=== PATIENT | female | born 1935 | race Caucasian/White ===

== ENCOUNTER 2022-11-01 22:26 | Inpatient (IN) ==
[2022-11-01] MEDS ORDERED: SODIUM CHLORIDE 0.9% 1000ML 1,000 ML IV SCH (22:45)
[2022-11-01 23:14] LABS: Basophils # (auto) 0.06 K/uL (0-0.2); Basophils % (auto) 0.8 %; Eosinophils # (auto) 0.28 K/uL (0-0.50); Eosinophils % (auto) 3.9 %; Hematocrit (blood only) 38.2 % (37.0-47.0); Hemoglobin 13.3 g/dl (12.0-16.0); Immature Granulocytes # (auto) 0.02 K/uL (0.01-0.20); Immature Granulocytes % (auto) 0.3 %; Lymphocytes # (auto) 1.66 K/uL (1.2-3.4); Lymphocytes % (auto) 22.9 %; Mean Corpuscular Hemoglobin 33.3 pg (25.0-34.0); Mean Corpuscular Hgb Conc 34.8 g/dL (32.0-36.0); Mean Corpuscular Volume 95.5 fL (80.0-100.0); Mean Platelet Volume 10.3 fL (9.4-12.4); Monocytes # (auto) 0.68 K/uL (0.11-0.59); Monocytes % (auto) 9.4 %; Neutrophils # (auto) 4.55 K/uL (1.40-6.50); Neutrophils % (auto) 62.7 %; Platelet Count 209 K/uL (130-400); RDW Coefficient of Variation 12.6 % (11.5-14.5); RDW Standard Deviation 43.9 fL (36.4-46.3); White Blood Count 7.25 K/ul (4.8-10.8)
[2022-11-01 23:27] LABS: Albumin Globulin Ratio 1.5 (0.9-2); Albumin Level 4.6 gm/dl (3.4-5.0); BUN Creatinine Ratio 16.5 (10-20); Bilirubin,Total 0.4 mg/dl (0.2-1.0); Calcium 10.3 mg/dl (8.5-10.1); Creatinine Clr Calc Pharmacy 43.5 ml/min; Est GFR (African American) 70.9 ml/min; Est GFR (Non-African American) 61.2 ml/min; Globulin 3.1 gm/dl (2.5-4.0); Magnesium 1.7 mg/dl (1.7-2.4); Potassium 3.8 mmol/L (3.5-5.1); Total Protein 7.7 gm/dl (6.0-8.3)
[2022-11-01 23:41] LABS: Thyroid Stimulating Hormone 15.554 uIu/ml (0.300-4.500)
[2022-11-01 23:58] LABS: INR 0.9 (0.9-1.1); Prothrombin Time 10.1 Seconds (9.0-12.0)
[2022-11-02 00:18] LABS: T4 Free Thyroxine 0.66 ng/dl (0.61-1.60)
[2022-11-02] MEDS ORDERED: OPTIRAY 350 100ml IV ONE (00:24)
--- NOTE | 2022-11-02 00:52 | Emergency Department Note ---
Impression & Plan Abdominal pain, acute, right lower quadrant, Small bowel obstruction, Abdominal wall hernia ED Provider Note ED Provider Note NAME: HERNAN FLORES AGE:87 SEX: Female : 1935 ARRIVES VIA: Private vehicle INFORMANT: Patient ED PROVIDER(s): Micaela Hernández DO CHIEF COMPLAINT: Abdominal pain HPI: This is an 87-year-old female presents emergency room due to concern for right lower quadrant abdominal pain which began this evening after dinner. Patient states she had some mild discomfort earlier in the day and mild bloating, although no overt pain to after eating dinner. She denies any change in her diet or eating something new. Denies any recent change in medications, denies trauma or injury. Patient states pain is similar to an episode 5 years ago where she had diverticulitis. Patient denies any recent change in her urine or stools. She denies any coming fevers but admits to chills. She denies n ausea or vomiting. No prior abdominal surgeries. No history of IBS or IBD. Patient states after developing pain she did check her blood pressure and noted it was elevated which also contributed to coming to the emergency room for evaluation. PAST MEDICAL HISTORY:See Below PAST SURGICAL HISTORY:See Below FAMILY HISTORY:See Below SOCIAL HISTORY:See Below HOME MEDICATIONS:See Below ALLERGIES:See Below VITALS:See Below PHYSICAL EXAMINATION: GENERAL: alert, well appearing, well nourished, no distress, non-toxic EYE EXAM: normal conjunctiva, PERRL and EOM's grossly intact OROPHARYNX: no exudate, no erythema, lips, buccal mucosa, and tongue normal and mucous membranes are moist NECK: supple, no nuchal rigidity, no adenopathy, non-tender LUNGS: Clear to auscultation. Normal chest wall mechanics, no w/r/r HEART: no murmurs, S1 normal and S2 normal ABDOMEN: abdomen soft, mild tenderness with palpation of the right lower quadrant, normo-active bowel sounds, no masses, no rebound or guarding. BACK: Back is symmetrical on inspection and there is no deformity, no midline tenderness, no CVA tenderness. SKIN: no rashes, petechiae, orbruising UPPER EXTREMITIES: upper extremities are grossly normal. FROM, nml pulses b/l. LOWER EXTREMITIES: No pitting edema. FROM, nml pulses b/l. NEURO EXAM: Normal sensorium, cranial nerves II-XII grossly intact, normal speech, no facial droop,nogross weakness of arms, no gross weakness of legs. Gross sensation intact. No ataxia. Vital Signs: reviewed and remarkable Differential Diagnosis: Differential diagnoses includes but is not limited to small bowel obstruction, ischemic bowel, irritable bowel disease, irritable bowel syndrome, appendicitis, diverticulitis, malignancy, hernia, urinary tract infection, torsion, perforation, trauma, infectious. MEDICAL DECISION MAKING: THis is an 87 yo female who presents with rlq abdominal pain. Patient with htn also although I suspect that is secondary to the pain and concern for etiology leading to presentation in the ER. Patient afebrile and VS stable. Labs drawn and sent, IV established, patient monitored on telemetry. Patient sent for CT imaging after discussion at bedside. Patient most concerned for diverticulitis. Pain localized to RLQ and rest of abd exam otherwise unremarkable. No palpable mass. CT revealed abd wall hernia extending into inguinal region containing loop of bowel and secondary SBO from this. Patient updated on results. Case discussed with gen surg and with hospitalist for additional inpatient evaluation. No n/v in the ER. No change in BMs and pt still passing gas. VS stable throughout. Consultation(s): 0135: Discussed with Phani Gomez PA-C with general surgery 0140: Updated patient and daughter at bedside. 0148: Discussed with Dr. Celaya ER Treatment Provided: See below Diagnostics Interpreted By Me: -ECG: Sinus tachycardia at 104, normal axis, normal QRS and QTc, no acute ST/T wave changes -Cardiac Monitoring: An order was placed for continuous cardiac monitoring. The monitor shows a rate of 90 with normal sinus rhythm. -Laboratory studies: As stated above and show below. -Imaging studies: [] Triage Nursing Note Reviewed Prior/Outside Records Reviewed Procedures: [] Critical Care: [] Past Med/Surg History Medical History (Updated 11/03/22 @ 11:31 by Micaela Hernández DO) Diverticulitis Hypertension Surgical History (Updated 11/03/22 @ 08:25 by Minh Pickard MD, FACS) H/O right inguinal hernia repair (11/02/22) Laparoscopy with open right inguinal hernia repair. Hx of abdominal surgery Family History Other No significant family history Social History Smoking Status: Never smoker Hx Alcohol Use: No Hx Substance Use: No Preferred Language: Romanian Communication Ability: Effective Universal Worker Assisted Living Required: No Beliefs That Will Affect Care: Spiritual Current Living Situation: Alone Feels Safe at Home: Yes Assistive Devices: None Allergies Allergies Allergy/AdvReac Type Severity Reaction Status Date / Time adhesive tape Allergy Rash Verified 11/01/22 23:15 cat dander Allergy Unknown Verified 11/01/22 23:15 colchicine Allergy abdominal Verified 11/01/22 23:15 pain,nausea,vomiting nickel Allergy Redness of Verified 11/01/22 23:15 Skin Home Meds Home Medications Medication Instructions Recorded Confirmed cholecalciferol (vitamin D3) 25 25 mcg PO DAILY 11/01/22 11/01/22 mcg (1,000 unit) tablet (Vitamin D3) lisinopril 2.5 mg tablet 2.5 mg PO DAILY 11/01/22 11/01/22 omeprazole 20 mg capsule,delayed 20 mg PO PRN Acid Reflux 11/01/22 release simvastatin 20 mg tablet 20 mg PO DAILY 11/01/22 11/01/22 Previous Rx's Medication Instructions Recorded cephalexin 500 mg capsule 500 mg PO TID #15 caps 11/03/22 hydrocodone 5 mg-acetaminophen 325 1 tab PO Q4H PRN pain #20 tabs 11/03/22 mg tablet Results & Data (ED) Vital Signs Vital Signs - 24 hr 11/01/22 22:27 11/01/22 22:52 11/01/22 23:19 Temperature 37.7 C H Temperature Source Temporal Artery Scan Pulse Rate 99 H Pulse Rate [Apical] 87 84 Respiratory Rate 16 20 20 Respiratory Effort / Characteristics Non-Labored Spontaneous Non-Labored Respiratory Depth Normal Normal Blood Pressure 191/96 H Blood Pressure [Left Arm] 186/121 H 172/89 H Blood Pressure Mean 127 Blood Pressure Mean [Left Arm] 142 116 Blood Pressure Position Sitting Blood Pressure Position [Left Arm] Sitting Pulse Oximetry 98 96 96 Oxygen Delivery Method Room Air Room Air Room Air Sepsis Recent Fever Within 48 Hours No Sepsis New/Unexplained Change in Mental Status N/A Sepsis Action Taken by Nursing No Action Required 11/01/22 23:15 11/02/22 00:36 11/02/22 01:32 Temperature Temperature Source Pulse Rate 75 Pulse Rate [Apical] 96 H 92 H Respiratory Rate 20 20 Respiratory Effort / Characteristics Non-Labored Non-Labored Respiratory Depth Normal Normal Blood Pressure Blood Pressure [Left Arm] 172/86 H 175/92 H Blood Pressure Mean Blood Pressure Mean [Left Arm] 114 119 Blood Pressure Position Blood Pressure Position [Left Arm] Pulse Oximetry 97 97 Oxygen Delivery Method Room Air Room Air Sepsis Recent Fever Within 48 Hours Sepsis New/Unexplained Change in Mental Status Sepsis Action Taken by Nursing Laboratory Data 11/01/22 22:53 11/01/22 22:53 Lab Results 11/01/22 11/01/22 11/01/22 Range/Units 22:53 22:53 22:53 WBC 7.25 (4.8-10.8) K/ul RBC 4.00 L (4.20-5.40) M/uL Hgb 13.3 (12.0-16.0) g/dl Hct 38.2 (37.0-47.0) % MCV 95.5 (80.0-100.0) fL MCH 33.3 (25.0-34.0) pg MCHC 34.8 (32.0-36.0) g/dL RDW Std Deviation 43.9 (36.4-46.3) fL RDW Coeff of Markell 12.6 (11.5-14.5) % Plt Count 209 (130-400) K/uL MPV 10.3 (9.4-12.4) fL Immature Gran % (Auto) 0.3 % Neut % (Auto) 62.7 % Lymph % (Auto) 22.9 % [place] % (Auto) 9.4 % Eos % (Auto) 3.9 % Baso % (Auto) 0.8 % Neut # (Auto) 4.55 (1.40-6.50) K/uL Lymph # (Auto) 1.66 (1.2-3.4) K/uL [place] # (Auto) 0.68 H (0.11-0.59) K/uL Eos # (Auto) 0.28 (0-0.50) K/uL Baso # (Auto) 0.06 (0-0.2) K/uL Immature Gran # (Auto) 0.02 (0.01-0.20) K/uL PT 10.1 (9.0-12.0) Seconds INR 0.9 (0.9-1.1) Sodium 136 (136-145) mmol/L Potassium 3.8 (3.5-5.1) mmol/L Chloride 101 (98-107) mmol/L Carbon Dioxide 31 (21-32) mmol/L Anion Gap 4 (3-11) BUN 14 (6-23) mg/dl Creatinine 0.85 (0.6-1.2) mg/dl Est Cr Clr Drug Dosing 43.5 ml/min Est GFR ( Amer) 70.9 ml/min Est GFR (Non-Af Amer) 61.2 ml/min BUN/Creatinine Ratio 16.5 (10-20) Glucose 119 H (70-99(Fasting)) mg/dl Lactate (0.4-2.0) mmol/L Calcium 10.3 H (8.5-10.1) mg/dl Magnesium 1.7 (1.7-2.4) mg/dl Total Bilirubin 0.4 (0.2-1.0) mg/dl AST 21 (13-39) U/L ALT 16 (7-52) U/L Alkaline Phosphatase 87 (34-104) U/L Troponin I High Sens 6.0 (0-14) pg/ml Total Protein 7.7 (6.0-8.3) gm/dl Albumin 4.6 (3.4-5.0) gm/dl Globulin 3.1 (2.5-4.0) gm/dl Albumin/Globulin Ratio 1.5 (0.9-2) Lipase 32 (11-82) U/L TSH (0.300-4.500) uIu/ml Free T4 (0.61-1.60) ng/dl Urine Color Urine Appearance (Clear) Urine pH (4.5-7.5) Ur Specific [place] (1.000-1.030) Urine Protein (Negative) Urine Glucose (UA) (Negative) Urine Ketones (Negative) Urine Blood (Negative) Urine Nitrite (Negative) Urine Bilirubin (Negative) Urine Urobilinogen (Negative) Ur Leukocyte Esterase (Negative) Urine WBC (Auto) (0-5) /hpf Urine RBC (Auto) (0-4) /hpf U Hyaline Cast (Auto) (0-5) /lpf U Epithel Cells (Auto) (0-5) /lpf Urine Bacteria (Auto) (Negative) SARS-CoV-2 (PCR) (Negative) Influenza Type A (PCR) (Neg) Influenza Type B (PCR) (Neg) RSV (RT-PCR) (Neg) 11/01/22 11/02/22 11/02/22 Range/Units 22:53 00:15 01:30 WBC (4.8-10.8) K/ul RBC (4.20-5.40) M/uL Hgb (12.0-16.0) g/dl Hct (37.0-47.0) % MCV (80.0-100.0) fL MCH (25.0-34.0) pg MCHC (32.0-36.0) g/dL RDW Std Deviation (36.4-46.3) fL RDW Coeff of Markell (11.5-14.5) % Plt Count (130-400) K/uL MPV (9.4-12.4) fL Immature Gran % (Auto) % Neut % (Auto) % Lymph % (Auto) % [place] % (Auto) % Eos % (Auto) % Baso % (Auto) % Neut # (Auto) (1.40-6.50) K/uL Lymph # (Auto) (1.2-3.4) K/uL [place] # (Auto) (0.11-0.59) K/uL Eos # (Auto) (0-0.50) K/uL Baso # (Auto) (0-0.2) K/uL Immature Gran # (Auto) (0.01-0.20) K/uL PT (9.0-12.0) Seconds INR (0.9-1.1) Sodium (136-145) mmol/L Potassium (3.5-5.1) mmol/L Chloride (98-107) mmol/L Carbon Dioxide (21-32) mmol/L Anion Gap (3-11) BUN (6-23) mg/dl Creatinine (0.6-1.2) mg/dl Est Cr Clr Drug Dosing ml/min Est GFR ( Amer) ml/min Est GFR (Non-Af Amer) ml/min BUN/Creatinine Ratio (10-20) Glucose (70-99(Fasting)) mg/dl Lactate 0.9 (0.4-2.0) mmol/L Calcium (8.5-10.1) mg/dl Magnesium (1.7-2.4) mg/dl Total Bilirubin (0.2-1.0) mg/dl AST (13-39) U/L ALT (7-52) U/L Alkaline Phosphatase (34-104) U/L Troponin I High Sens (0-14) pg/ml Total Protein (6.0-8.3) gm/dl Albumin (3.4-5.0) gm/dl Globulin (2.5-4.0) gm/dl Albumin/Globulin Ratio (0.9-2) Lipase (11-82) U/L TSH 15.554 H (0.300-4.500) uIu/ml Free T4 0.66 (0.61-1.60) ng/dl Urine Color Yellow Urine Appearance Clear (Clear) Urine pH 7.0 (4.5-7.5) Ur Specific [place] 1.021 (1.000-1.030) Urine Protein Negative (Negative) Urine Glucose (UA) Negative (Negative) Urine Ketones Negative (Negative) Urine Blood Negative (Negative) Urine Nitrite Negative (Negative) Urine Bilirubin Negative (Negative) Urine Urobilinogen Negative (Negative) Ur Leukocyte Esterase 1+ H (Negative) Urine WBC (Auto) 1-5 (0-5) /hpf Urine RBC (Auto) 0-4 (0-4) /hpf U Hyaline Cast (Auto) 0 (0-5) /lpf U Epithel Cells (Auto) 0-5 (0-5) /lpf Urine Bacteria (Auto) Negative (Negative) SARS-CoV-2 (PCR) (Negative) Influenza Type A (PCR) (Neg) Influenza Type B (PCR) (Neg) RSV (RT-PCR) (Neg) 11/02/22 Range/Units 01:40 WBC (4.8-10.8) K/ul RBC (4.20-5.40) M/uL Hgb (12.0-16.0) g/dl Hct (37.0-47.0) % MCV (80.0-100.0) fL MCH (25.0-34.0) pg MCHC (32.0-36.0) g/dL RDW Std Deviation (36.4-46.3) fL RDW Coeff of Markell (11.5-14.5) % Plt Count (130-400) K/uL MPV (9.4-12.4) fL Immature Gran % (Auto) % Neut % (Auto) % Lymph % (Auto) % [place] % (Auto) % Eos % (Auto) % Baso % (Auto) % Neut # (Auto) (1.40-6.50) K/uL Lymph # (Auto) (1.2-3.4) K/uL [place] # (Auto) (0.11-0.59) K/uL Eos # (Auto) (0-0.50) K/uL Baso # (Auto) (0-0.2) K/uL Immature Gran # (Auto) (0.01-0.20) K/uL PT (9.0-12.0) Seconds INR (0.9-1.1) Sodium (136-145) mmol/L Potassium (3.5-5.1) mmol/L Chloride (98-107) mmol/L Carbon Dioxide (21-32) mmol/L Anion Gap (3-11) BUN (6-23) mg/dl Creatinine (0.6-1.2) mg/dl Est Cr Clr Drug Dosing ml/min Est GFR ( Amer) ml/min Est GFR (Non-Af Amer) ml/min BUN/Creatinine Ratio (10-20) Glucose (70-99(Fasting)) mg/dl Lactate (0.4-2.0) mmol/L Calcium (8.5-10.1) mg/dl Magnesium (1.7-2.4) mg/dl Total Bilirubin (0.2-1.0) mg/dl AST (13-39) U/L ALT (7-52) U/L Alkaline Phosphatase (34-104) U/L Troponin I High Sens (0-14) pg/ml Total Protein (6.0-8.3) gm/dl Albumin (3.4-5.0) gm/dl Globulin (2.5-4.0) gm/dl Albumin/Globulin Ratio (0.9-2) Lipase (11-82) U/L TSH (0.300-4.500) uIu/ml Free T4 (0.61-1.60) ng/dl Urine Color Urine Appearance (Clear) Urine pH (4.5-7.5) Ur Specific [place] (1.000-1.030) Urine Protein (Negative) Urine Glucose (UA) (Negative) Urine Ketones (Negative) Urine Blood (Negative) Urine Nitrite (Negative) Urine Bilirubin (Negative) Urine Urobilinogen (Negative) Ur Leukocyte Esterase (Negative) Urine WBC (Auto) (0-5) /hpf Urine RBC (Auto) (0-4) /hpf U Hyaline Cast (Auto) (0-5) /lpf U Epithel Cells (Auto) (0-5) /lpf Urine Bacteria (Auto) (Negative) SARS-CoV-2 (PCR) NEGATIVE (Negative) Influenza Type A (PCR) Negative (Neg) Influenza Type B (PCR) Negative (Neg) RSV (RT-PCR) Negative (Neg) Administered Medications Enoxaparin Sodium (Enoxaparin Inj 30 Mg/0.3 Ml Syr) 30 mg SQ QAM [facility] Stop: 12/02/22 08:59 Last Admin: 11/03/22 08:48 Dose: 30 mg Documented By: Admin: 11/02/22 09:11 Dose: Not Given Documented By: ADOLFO Cefazolin Sodium (Ancef 1000mg) 1,000 mg in 7.5 mls @ 2.5 mls/min IV Q8H [facility]; Protocol Stop: 11/09/22 13:59 Last Admin: 11/03/22 05:49 Dose: 2.5 mls/min Documented By: Admin: 11/02/22 20:57 Dose: 2.5 mls/min Documented By: Admin: 11/02/22 14:13 Dose: 2.5 mls/min Documented By: DONNA Lisinopril (Lisinopril 5 Mg Tab) 5 mg PO DAILY [facility] Stop: 12/03/22 08:59 Last Admin: 11/03/22 08:47 Dose: 5 mg Documented By: DIANA Magnesium Hydroxide (Magnesium Hydroxide Susp 30 Ml Udc) 30 ml PO BID [facility] Stop: 12/03/22 08:59 Last Admin: 11/03/22 08:50 Dose: 30 ml Documented By: DIANA Pantoprazole Sodium (Pantoprazole 40 Mg Tab) 40 mg PO AMHS [facility] Stop: 12/02/22 08:59 Last Admin: 11/03/22 08:47 Dose: 40 mg Documented By: Admin: 11/02/22 20:50 Dose: 40 mg Documented By: Admin: 11/02/22 08:35 Dose: 40 mg Documented By: ADOLFO Senna/Docusate Sodium (Docusate Sodium/Senna 50/8.6mg Tab) 1 tab PO BID [facility] Stop: 12/03/22 08:59 Last Admin: 11/03/22 08:50 Dose: 1 tab Documented By: DIANA Simvastatin (Simvastatin 20 Mg Tab) 20 mg PO DAILY [facility] Stop: 12/02/22 08:59 Last Admin: 11/03/22 08:47 Dose: 20 mg Documented By: Admin: 11/02/22 08:36 Dose: 20 mg Documented By: ADOLFO Vitamin D (Cholecalciferol 1,000 Units 25 Mcg Tab) 1,000 units PO DAILY [facility] Stop: 12/03/22 08:59 Last Admin: 11/03/22 08:47 Dose: 1,000 units Documented By: DIANA Discontinued Medications Bupivacaine HCl (Bupivacaine 0.5 % 5 Mg/1 Ml Mpf 30ml Vial) Confirm Administered Dose 30 ml .ROUTE .STK-MED ONE Stop: 11/02/22 09:57 Last Admin: 11/02/22 11:24 Dose: 20 ml Documented By: MOIRA Hydralazine HCl (Hydralazine Hcl 20 Mg/Ml Vial) 5 mg IV NOW ONE Stop: 11/02/22 01:52 Last Increment: 11/02/22 03:15 Dose: 0.25 mg Documented By: ERIKA Sodium Chloride (Nss 1000ml) 1,000 mls @ 125 mls/hr IV .Q8H [facility] Stop: 12/01/22 22:44 Last Infusion: 11/02/22 08:09 Dose: 0 mls/hr Documented By: Admin: 11/01/22 23:19 Dose: 125 mls/hr Documented By: DAPHNIE Acetaminophen (Ofirmev) 1,000 mg in 100 mls @ 400 mls/hr IV NOW STA Stop: 11/02/22 02:00 Last Admin: 11/02/22 04:33 Dose: Not Given Documented By: ERIKA Piperacillin Sod/Tazobactam Sod (Zosyn) 4.5 gm in 120 mls @ 240 mls/hr IV NOW ONE Stop: 11/02/22 02:16 Last Admin: 11/02/22 04:32 Dose: Not Given Documented By: ERIKA Sodium Chloride (Nss 1000ml) 1,000 mls @ 75 mls/hr IV .[id number] ONE Stop: 11/02/22 15:08 Last Infusion: 11/02/22 15:14 Dose: 0 mls/hr Documented By: Admin: 11/02/22 07:01 Dose: 75 mls/hr Documented By: ADOLFO Ceftriaxone Sodium 2,000 mg/ (Dextrose) 70 mls @ 100 mls/hr IV Q24H [facility]; Protocol Stop: 11/12/22 03:59 Last Admin: 11/02/22 06:59 Dose: Not Given Documented By: ADOLFO Piperacillin Sod/Tazobactam (Sod 3.375 gm/ Dextrose) 115 mls @ 230 mls/hr IV NOW ONE; Protocol Stop: 11/02/22 06:34 Last Infusion: 11/02/22 06:44 Dose: 0 mls/hr Documented By: Admin: 11/02/22 06:14 Dose: 230 mls/hr Documented By: ERIKA Piperacillin Sod/Tazobactam (Sod 3.375 gm/ Dextrose) 115 mls @ 28.75 mls/hr IV Q8H [facility]; Protocol Stop: 11/12/22 11:59 Last Admin: 11/02/22 12:45 Dose: Not Given Documented By: DONNA Cefazolin Sodium (Ancef 1000mg) 1,000 mg in 7.5 mls @ 2.5 mls/min IV ONCE ONE Stop: 11/02/22 11:10 Last Admin: 11/02/22 11:09 Dose: 2.5 mls/min Documented By: MOIRA Acetaminophen (Ofirmev) 1,000 mg in 100 mls @ 400 mls/hr IV NOW ONE Stop: 11/02/22 11:48 Last Admin: 11/02/22 12:46 Dose: Not Given Documented By: DONNA Sodium Chloride (Nss 1000ml) 1,000 mls @ 50 mls/hr IV .Q20H [facility] Stop: 11/02/22 16:44 Last Infusion: 11/03/22 05:15 Dose: 0 mls/hr Documented By: Admin: 11/02/22 12:47 Dose: 50 mls/hr Documented By: DONNA Ioversol (Optiray 350 100ml) 100 ml IV ONCE ONE Stop: 11/02/22 00:25 Last Admin: 11/02/22 00:24 Dose: 85 ml Documented By: MIRYAM Lisinopril (Lisinopril 5 Mg Tab) 5 mg PO NOW STA Stop: 11/02/22 06:43 Last Admin: 11/02/22 09:08 Dose: 5 mg Documented By: ADOLFO Lisinopril (Lisinopril 5 Mg Tab) Confirm Administered Dose 5 mg PO .STK-MED ONE Stop: 11/02/22 09:02 Last Admin: 11/02/22 12:46 Dose: Not Given Documented By: DONNA Sennosides (Sennosides 8.8 Mg/5 Ml Udc) 8.8 mg PO BID [facility] Stop: 12/02/22 20:59 Last Admin: 11/02/22 20:50 Dose: 8.8 mg Documented By: WALE Imaging Data Radiologist's Impression: CT abdomen pelvis with contrast: Comparison 10/20/2019. 10 cm right lower quadrant ventral hernia (which extends into inguinal region) is now larger and contains a short loop of obstructed distal/terminal ileum as well as trace free fluid. Minimally dilated small bowel just proximal to this in right upper and right lower quadrants, consistent with SBO. Appendix not seen. Emphysematous changes lung bases. Small hiatal hernia. Left renal cyst. Colonic diverticulosis. Radiologist: Fatimah Fenton MD Discharge Plan Visit Data Chief Complaint: Hypertension Stated Complaint: ADOMINAL PAIN, HBP, ED Provider: Micaela Hernández Discharge Problem: Abdominal pain, acute, right lower quadrant, Small bowel obstruction, Abdominal wall hernia Patient Disposition: Admitted As Inpatient Discharge Instructions Interventions: ED Discharge Assessment Last Done: 11/02/22 04:24
[2022-11-02] MEDS ORDERED: ACETAMINOPHEN 1,000 MG/100 ML VIAL IV STA (01:46)
[2022-11-02] MEDS ORDERED: PIPERACILLIN/TAZOBACTAM 4.5 GM/120 ML BAG IV ONE (01:47)
--- NOTE | 2022-11-02 01:48 | History & Physical Report ---
Date of Service November 02, 2022 Assessment & Plan (1) Abdominal pain, acute, right lower quadrant: Plan: Multifactorial : SBO on initial CT read Complicated UTI, no overt sepsis for now hypertensive urgency secondary to illness hyperlipidemia on statin Rx GERD, stable on regimen Hyperglycemia rule out DM Medical telemetry given elevated BP Hydralazine 1 dose now Bowel rest NGT decompression if with emesis General surgery consult Re: Possible SBO on initial CT read (ER provider already in touch with [facility].) Urine CS, Ceftriaxone Check hemoglobin A1c DVT prophylaxis. Lovenox subcu Full code Patient daughter requesting updates from providers. Nu Lovell, contact #[phone]. Text document was generated using [employer] voice recognition software. It may contain grammatical or spelling errors. Kindly contact undersigned for clarification of any documentation item in question. History of Present Illness Chief Complaint: Abdominal pain Primary Care Provider: Jake Jordan MD History obtained from patient, family, and records. Medical history significant for hypertension, hyperlipidemia, GERD, gout, macular degeneration. Patient noted achy right lower quadrant pain associated with bloating after dinner last night. No fever, no chills, no chest pain, no SOB. Similar to diverticulitis attack from a few years ago as per patient. Patient brought to the ER for evaluation. 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 Allergies Allergy/AdvReac Type Severity Reaction Status Date / Time adhesive tape Allergy Rash Verified 11/01/22 23:15 cat dander Allergy Unknown Verified 11/01/22 23:15 colchicine Allergy abdominal Verified 11/01/22 23:15 pain,nausea,vomiting nickel Allergy Redness of Verified 11/01/22 23:15 Skin Home Medications Medication Instructions Recorded Confirmed Type cholecalciferol (vitamin D3) 25 25 mcg PO DAILY 11/01/22 11/01/22 History mcg (1,000 unit) tablet (Vitamin D3) lisinopril 2.5 mg tablet 2.5 mg PO DAILY 11/01/22 11/01/22 History omeprazole 20 mg capsule,delayed 20 mg PO AMHS 11/01/22 11/01/22 History release simvastatin 20 mg tablet 20 mg PO DAILY 11/01/22 11/01/22 History Past Med/Surg History Medical History Diverticulitis Hypertension Surgical History Hx of abdominal surgery Family History Other No significant family history Social History Smoking Status: Never smoker Preferred Language: French Feels Safe at Home: Yes Review of Systems Review of Systems: As per HPI, all other systems reviewed and negative Physical Exam Physical Exam: GENERAL: Comfortable, pleasant, looks younger than stated age, no respiratory distress SKIN: Normal color, warm HEENT: [place] palpebral conjunctivae, no ptosis, moist buccal mucosa NECK : Supple, no tenderness CHEST : CTA, no tenderness HEART : RRR, no obvious murmurs ABDOMEN: Some distention, nontender EXTREMITIES : No LE swelling/tenderness, no other conspicuous deformities noted NEUROLOGIC : Coherent, no facial asymmetry, no other gross focality Results & Data Results & Data ([facility]) Vital Signs (Past 12 Hours) Vital Signs Temp Pulse Pulse Resp BP BP Pulse Ox 11/02/22 01:32 92 H 20 175/92 H 97 11/02/22 00:36 96 H 20 172/86 H 97 11/01/22 23:15 75 11/01/22 23:19 84 20 172/89 H 96 11/01/22 22:52 87 20 186/121 H 96 11/01/22 22:27 37.7 C H 99 H 16 191/96 H 98 O2 Del Method 11/02/22 01:32 Room Air 11/02/22 00:36 Room Air 11/01/22 23:15 11/01/22 23:19 Room Air 11/01/22 22:52 Room Air 11/01/22 22:27 Room Air Laboratory Results Laboratory Results WBC 7.25 K/ul (4.8-10.8) 11/01/22 22:53 RBC 4.00 M/uL (4.20-5.40) L 11/01/22 22:53 Hgb 13.3 g/dl (12.0-16.0) 11/01/22 22:53 Hct 38.2 % (37.0-47.0) 11/01/22:53 MCV 95.5 fL (80.0-100.0) 11/01/22: MCH 33.3 pg (25.0-34.0) 11/01/22: MCHC 34.8 g/dL (32.0-36.0) 11/01/22: RDW Std Deviation 43.9 fL (36.4-46.3) 11/01/22: RDW Coeff of Markell 12.6 % (11.5-14.5) 11/01/22: Plt Count 209 K/uL (130-400) 11/01/22: MPV 10.3 fL (9.4-12.4) 11/01/22: Immature Gran % (Auto) 0.3 % 11/01/22: Neut % (Auto) 62.7 % 11/01/22:53 Lymph % (Auto) 22.9 % 11/01/22 22:53 Rhea % (Auto) 9.4 % 11/01/22 22:53 Eos % (Auto) 3.9 % 11/01/22:53 Baso % (Auto) 0.8 % 11/01/22:53 Neut # (Auto) 4.55 K/uL (1.40-6.50) 11/01/22: Lymph # (Auto) 1.66 K/uL (1.2-3.4) 11/01/22:53 Rhea # (Auto) 0.68 K/uL (0.11-0.59) H 11/01/22:53 Eos # (Auto) 0.28 K/uL (0-0.50) 11/01/22:53 Baso # (Auto) 0.06 K/uL (0-0.2) 11/01/22:53 Immature Gran # (Auto) 0.02 K/uL (0.01-0.20) 11/01/22 22: PT 10.1 Seconds (9.0-12.0) 11/01/22 22:53 INR 0.9 (0.9-1.1) 11/01/22 22:53 Sodium 136 mmol/L (136-145) 11/01/22 22:53 Potassium 3.8 mmol/L (3.5-5.1) 11/01/22 22:53 Chloride 101 mmol/L (98-107) 11/01/22 22:53 Carbon Dioxide 31 mmol/L (21-32) 11/01/22 22:53 Anion Gap 4 (3-11) 11/01/22 22:53 BUN 14 mg/dl (6-23) 11/01/22 22:53 Creatinine 0.85 mg/dl (0.6-1.2) 11/01/22 22:53 Est Cr Clr Drug Dosing 43.5 ml/min 11/01/22 22:53 Est GFR ( Amer) 70.9 ml/min 11/01/22 22:53 Est GFR (Non-Af Amer) 61.2 ml/min 11/01/22 22:53 BUN/Creatinine Ratio 16.5 (10-20) 11/01/22 22:53 Glucose 119 mg/dl (70-99(Fasting)) H 11/01/22 22:53 Lactate 0.9 mmol/L (0.4-2.0) 11/02/22 00:15 Calcium 10.3 mg/dl (8.5-10.1) H 11/01/22 22:53 Magnesium 1.7 mg/dl (1.7-2.4) 11/01/22 22:53 Total Bilirubin 0.4 mg/dl (0.2-1.0) 11/01/22 22:53 AST 21 U/L (13-39) 11/01/22 22:53 ALT 16 U/L (7-52) 11/01/22 22:53 Alkaline Phosphatase 87 U/L (34-104) 11/01/22 22:53 Troponin I High Sens 6.0 pg/ml (0-14) 11/01/22 22:53 Total Protein 7.7 gm/dl (6.0-8.3) 11/01/22 22:53 Albumin 4.6 gm/dl (3.4-5.0) 11/01/22 22:53 Globulin 3.1 gm/dl (2.5-4.0) 11/01/22 22:53 Albumin/Globulin Ratio 1.5 (0.9-2) 11/01/22 22:53 Lipase 32 U/L (11-82) 11/01/22 22:53 TSH 15.554 uIu/ml (0.300-4.500) H 11/01/22 22:53 Free T4 0.66 ng/dl (0.61-1.60) 11/01/22 22:[address] abdomen pelvis initial read: right lower quadrant ventral hernia (which extends to inguinal region) is now larger and contains a short loop of obstructed distal/terminal ileum as well as trace free fluid. Minimally dilated small bowel just proximal to this in right upper and right lower quadrants, consistent with SBO. Appendix not seen. Emphysematous changes lung bases. Small hiatal hernia. Left renal cyst. Colonic diverticulosis. Chest x-ray as per my interpretation atelectasis :
[2022-11-02] MEDS ORDERED: SODIUM CHLORIDE 0.9% 1000ML 1,000 ML IV ONE (01:49)
--- NOTE | 2022-11-02 01:50 | Surgery Consultation ---
Date of Consultation November 02, 2022 Assessment & Plan (1) Small bowel obstruction: I discussed with the treating emergency room physician and she was having the patient admitted to the hospitalist service. We recommend proceeding as follows: Provide analgesicsprovide antiemetics Provide hydration with IV fluids Implement n.p.o. status. At the present time the patient has an entirely benign abdominal exam and has not had any emesis and therefore I do not feel an NG tube is required. I did discuss with the patient that if her clinical exam worsens or she has emesis this may need to be reconsidered Additional recommendations to be forthcoming based on her clinical course as it unfolds Supervising Physician Co-Signing Physician Notes Dr. Rivera was seen in the emergency room and her history and studies have been evaluated I believe she had a loop of bowel incarcerated in a right lower quadrant abdominal wall hernia which was then reduced. There is evidence on her CT scan that it was causing obstructive symptoms and most likely the cause of her pain. I do believe this should be repaired soon as possible and likely today and that it will likely recur and could become strangulated I have discussed this with the patient and her daughter and they do agree to proceed We will proceed with laparoscopic evaluation and repair , possible open repair History of Present Illness Reason for Consultation: Ventral hernia with small bowel obstruction History of Present Illness This is an 87-year-old female who presented to the emergency department secondary to right-sided abdominal pain. Patient says that she has been having somewhat of an ache on the right side of her abdomen for approximately 1 week. She notes that the pain became worse after her evening meal on 11/01/2022. She says the pain is located in the right lower quadrant of her abdomen without radiation. She denies any palliative or provocative factors. She notes the pain got somewhat worse so she came to the emergency department. She denies any nausea or vomiting. She denies any fevers, shakes, or chills. She notes that she had a normal bowel movement earlier today. She has never had any prior abdominal surgeries. Since arrival to the floor the patient has had labs and imaging which I independently reviewed. She did have a CT scan of the abdomen and pelvis which showed that patient had a ventral hernia in the right lower quadrant which extends into the inguinal region. This contains a short loop of obstructed terminal ileum. There is minimally dilated small bowel proximal to this region which was felt to be consistent with a small bowel obstruction. Labs include a CBC her white blood cell count was normal as was her hemoglobin, hematocrit, and platelet count. Coagulation studies were normal. Chemistry profile showed sodium, potassium, BUN, and creatinine were normal. There is no elevation of patient's LFTs. An EKG showed sinus tachycardia without changes indicative of acute ischemia. A chest x-ray showed no evidence of pneumonia. At the time of my interview the patient was resting comfortably in bed without any symptoms or distress. \ Allergies Allergy/AdvReac Type Severity Reaction Status Date / Time adhesive tape Allergy Rash Verified 11/01/22 23:15 cat dander Allergy Unknown Verified 11/01/22 23:15 colchicine Allergy abdominal Verified 11/01/22 23:15 pain,nausea,vomiting nickel Allergy Redness of Verified 11/01/22 23:15 Skin Home Medications Medication Instructions Recorded Confirmed Type cholecalciferol (vitamin D3) 25 25 mcg PO DAILY 11/01/22 11/01/22 History mcg (1,000 unit) tablet (Vitamin D3) lisinopril 2.5 mg tablet 2.5 mg PO DAILY 11/01/22 11/01/22 History omeprazole 20 mg capsule,delayed 20 mg PO AMHS 11/01/22 11/01/22 History release simvastatin 20 mg tablet 20 mg PO DAILY 11/01/22 11/01/22 History Patient History Medical History Diverticulitis Hypertension Surgical History Hx of abdominal surgery Family History Other No significant family history Social History Smoking Status: Never smoker Preferred Language: Kyrgyz Feels Safe at Home: Yes Review of Systems Constitutional: no fever and no chills Eyes: + corrective lenses Ear, Nose, Mouth, Throat: no ear pain Respiratory: no cough and no dyspnea Cardiovascular: no chest pain Gastrointestinal: as per Subjective / HPI Genitourinary: no dysuria Musculoskeletal: no back pain Integumentary: no rash Neurologic: no localized weakness Physical Exam Constitutional: WD/WN, vitals as above Eyes: no conjunctival abnormality ENMT: Ears: no hearing impairment and no external ear abnormality Mouth: no oropharynx abnormality Neck: trachea midline Respiratory: normal respiratory effort; no respiratory distress and no labored breathing Cardiovascular: Rate/Rhythm: regular rate and regular rhythm Gastrointestinal (Abdomen): Abdomen is soft and distended. It is nonrigid and nontender to palpation. Bowel sounds are present. There is no rebound tenderness or guarding. I could not appreciate any hernias at the time of my exam. Musculoskeletal: No calf tenderness Skin: no rashes Neurologic: moves all extremities Psychiatric: A+Ox3, euthymic affect Results & Data ([facility]) Vital Signs (Past 12 Hours) Vital Signs Temp Pulse Pulse Resp BP BP Pulse Ox 11/02/22 01:32 92 H 20 175/92 H 97 11/02/22 00:36 96 H 20 172/86 H 97 11/01/22 23:15 75 11/01/22 23:19 84 20 172/89 H 96 11/01/22 22:52 87 20 186/121 H 96 11/01/22 22:27 37.7 C H 99 H 16 191/96 H 98 O2 Del Method 11/02/22 01:32 Room Air 11/02/22 00:36 Room Air 11/01/22 23:15 11/01/22 23:19 Room Air 11/01/22 22:52 Room Air 11/01/22 22:27 Room Air PG Care Time/CCT Total # of Minutes Spent Total Time Spent with Patient: Total time spent is greater than 50% in coordination of care (as documented) at patient's floor/unit and/or counseling patient: Coding Level of Care Code 12912 INT INP/OBS CARE 3/75MIN Diagnoses Small bowel obstruction K56.609
[2022-11-02] MEDS ORDERED: hydrALAZINE HCL 20 MG/ML VIAL IV ONE (01:51)
[2022-11-02 01:53] LABS: Appearance Urine Clear (Clear); Bacteria Urine Automated Negative (Negative); Bilirubin Urine Negative (Negative); Blood Urine Negative (Negative); Cast Urine Automated 0 /lpf (0-5); Color Urine Yellow; Epithelial Cell Urine Auto 0-5 /lpf (0-5); Glucose Urine UA Negative (Negative); Ketones Urine Negative (Negative); Leukocyte Esterase Urine 1+ (Negative); Nitrite Urine Negative (Negative); Protein Urine Negative (Negative); RBC Urine Automated 0-4 /hpf (0-4); Specific Gravity Urine 1.021 (1.000-1.030); Urobilinogen Urine Negative (Negative)
[2022-11-02] MEDS ORDERED: PROMETHAZINE HCL 6.25 MG in SODIUM CHLORIDE 0.9% 50 ML IV PRN (01:54)
[2022-11-02 02:57] LABS: Influenza A virus by PCR Negative (Neg); Influenza B virus by PCR Negative (Neg); RSV by PCR Negative (Neg); SARS CoV2 RNA(COVID-19) Ceph NEGATIVE (Negative)
[2022-11-02] MEDS ORDERED: cefTRIAXone SODIUM 2,000 MG in DEXTROSE 5% 50 ML IV SCH (04:00)
[2022-11-02] MEDS ORDERED: ACETAMINOPHEN 325 MG TAB PO PRN ×2 (04:23→12:37)
[2022-11-02 04:44] LABS: Basophils # (auto) 0.07 K/uL (0-0.2); Basophils % (auto) 0.7 %; Eosinophils # (auto) 0.25 K/uL (0-0.50); Eosinophils % (auto) 2.5 %; Hemoglobin 12.7 g/dl (12.0-16.0); Immature Granulocytes # (auto) 0.02 K/uL (0.01-0.20); Immature Granulocytes % (auto) 0.2 %; Lymphocytes # (auto) 1.35 K/uL (1.2-3.4); Lymphocytes % (auto) 13.6 %; Mean Corpuscular Hemoglobin 33.2 pg (25.0-34.0); Mean Corpuscular Hgb Conc 35.3 g/dL (32.0-36.0); Mean Corpuscular Volume 94.2 fL (80.0-100.0); Mean Platelet Volume 10.1 fL (9.4-12.4); Monocytes # (auto) 0.79 K/uL (0.11-0.59); Monocytes % (auto) 7.9 %; Neutrophils # (auto) 7.48 K/uL (1.40-6.50); Neutrophils % (auto) 75.1 %; Platelet Count 206 K/uL (130-400); RDW Coefficient of Variation 12.4 % (11.5-14.5); RDW Standard Deviation 42.9 fL (36.4-46.3); Red Blood Count 3.82 M/uL (4.20-5.40); White Blood Count 9.96 K/ul (4.8-10.8)
[2022-11-02 05:08] LABS: BUN Creatinine Ratio 18.3 (10-20); Calcium 9.8 mg/dl (8.5-10.1); Creatinine Clr Calc Pharmacy 45.1 ml/min; Est GFR (Non-African American) 63.9 ml/min; Potassium 4.3 mmol/L (3.5-5.1)
[2022-11-02] MEDS ORDERED: PIPERACILLIN/TAZOBACTAM 3.375 GM in DEXTROSE 5% 100 ML IV ONE (06:05)
[2022-11-02] MEDS ORDERED: lisinopril 5 MG TAB PO STA (06:42)
[2022-11-02 06:52] LABS: Estimated Average Glucose 105 mg/dl; Hemoglobin A1C 5.3 % (4.5-5.6)
[2022-11-02] MEDS ORDERED: hydrALAZINE HCL 20 MG/ML VIAL IV PRN (07:54)
--- NOTE | 2022-11-02 08:10 | CT Scan Report ---
ABDOMEN AND PELVIS CT WITH IV CONTRAST CT DOSE: 403.67 mGy.cm HISTORY: lower abd pain TECHNIQUE: Multiaxial CT images of the abdomen and pelvis were performed following the use of intrave nous contrast. A dose lowering technique was utilized adhering to the principles of ALARA. COMPARISON STUDY: Abdomen and pelvis CT 10/20/2019. FINDINGS: Mild dependent changes seen at the lung bases. No pneumoperitoneum. No pneumatosis. No acut e fractures. There is a small hiatus hernia. The gallbladder is contracted. No hepatic or splenic mas ses. Normal pancreas and left adrenal gland. There is a 2.4 cm left renal cyst. The right kidney enha nces normally. No hydronephrosis. Normal caliber abdominal aorta. The main portal vein is patent. No retroperitoneal or pelvic lymphadenopathy. The bladder, uterus, bilateral adnexa are within normal li mits. Colonic diverticulosis. No evidence for acute diverticulitis. There is a right lower quadrant/i nguinal hernia containing a short segment of the distal ileum. This results in the transition point o f the small bowel obstruction. Distended loops of small bowel measure up to 3.1 cm in diameter. IMPRESSION: There is a right lower quadrant/inguinal hernia containing a short segment of distal ileum. This resu lts in the transition point of the small bowel obstruction. ACT 112: Negative or not required by law. Electronically signed by: Chon Salomon M.D. 11/02/2022 8:08 AM
[2022-11-02] MEDS: PANTOprazole 40 MG TAB PO SCH ×2 (08:35→20:50)
[2022-11-02] MEDS: SIMVASTATIN 20 MG TAB PO SCH (08:36)
[2022-11-02] MEDS ORDERED: lisinopril 2.5 MG TAB PO SCH (09:00)
--- NOTE | 2022-11-02 09:00 | XRay Report ---
XR chest 1V portable HISTORY: Hypertension. COMPARISON: None. FINDINGS: The lungs are clear. Cardiac silhouette is normal in size. No pleural effusions. No pneumot horax. IMPRESSION: No acute process. ACT 112: Negative or not required by law. Electronically signed by: Chon Salomon M.D. 11/02/2022 8:59 AM
[2022-11-02] MEDS ORDERED: lisinopril 5 MG TAB PO ONE (09:01)
--- NOTE | 2022-11-02 09:05 | Anesthesiology Consultation ---
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 Surgery Operation Date: 11/02/22 10:10 Proposed Procedures p Laparoscopic Ventral Hernia Repair Possible Open - Minh Pickard MD, FACS Height/Weight Height: 5 ft 4 in Weight: 68.4 kg Allergies Allergy/AdvReac Type Severity Reaction Status Date / Time adhesive tape Allergy Rash Verified 11/01/22 23:15 cat dander Allergy Unknown Verified 11/01/22 23:15 colchicine Allergy abdominal Verified 11/01/22 23:15 pain,nausea,vomiting nickel Allergy Redness of Verified 11/01/22 23:15 Skin Medications Home Medications Medication Instructions Recorded Confirmed Last Taken cholecalciferol (vitamin D3) 25 25 mcg PO DAILY 11/01/22 11/01/22 Unknown mcg (1,000 unit) tablet (Vitamin D3) lisinopril 2.5 mg tablet 2.5 mg PO DAILY 11/01/22 11/01/22 Unknown omeprazole 20 mg capsule,delayed 20 mg PO AMHS 11/01/22 11/01/22 Unknown release simvastatin 20 mg tablet 20 mg PO DAILY 11/01/22 11/01/22 Unknown Active Medications Generic Name Dose Route Start Last Admin Trade Name Freq PRN Reason Stop Dose Admin Sodium Chloride 1,000 mls @ 75 mls/hr 11/02/22 01:49 11/02/22 07:01 Nss 1000ml IV 11/02/22 15:08 75 mls/hr .[id number] ONE Administration Pantoprazole Sodium 40 mg 11/02/22 09:00 11/02/22 08:35 Pantoprazole 40 Mg Tab PO 12/02/22 08:59 40 mg AMHS ENMANUEL Administration Simvastatin 20 mg 11/02/22 09:00 11/02/22 08:36 Simvastatin 20 Mg Tab PO 12/02/22 08:59 20 mg DAILY ENMANUEL Administration Past Medical History Medical History Diverticulitis Hypertension Past Family History Family History Other No significant family history Past Surgical History Surgical History Hx of abdominal surgery Social History Smoking Status: Never smoker Physical Exam Vital Signs Last Vital Signs Temp 99.9 F H 11/01/22 22:27 Pulse 78 11/02/22 06:55 Resp 18 11/02/22 06:00 BP 181/87 H 11/02/22 06:00 Pulse Ox 94 11/02/22 06:00 O2 Del Method Room Air 11/02/22 06:00 Testing Laboratory Results 11/02/22 04:29 11/02/22 04:29 PT 10.1 Seconds (9.0-12.0) 11/01/22 22:53 INR 0.9 (0.9-1.1) 11/01/22 22:53 Hemoglobin A1c 5.3 % (4.5-5.6) 11/02/22 04:29 Urine Color Yellow 11/02/22 01:30 Urine Appearance Clear (Clear) 11/02/22 01:30 Urine pH 7.0 (4.5-7.5) 11/02/22 01:30 Ur Specific [place] 1.021 (1.000-1.030) 11/02/22 01:30 Urine Protein Negative (Negative) 11/02/22 01:30 Urine Glucose (UA) Negative (Negative) 11/02/22 01:30 Urine Ketones Negative (Negative) 11/02/22 01:30 Urine Nitrite Negative (Negative) 11/02/22 01:30 Ur Leukocyte Esterase 1+ (Negative) H 11/02/22 01:30 Urine WBC (Auto) 1-5 /hpf (0-5) 11/02/22 01:30 Urine RBC (Auto) 0-4 /hpf (0-4) 11/02/22 01:30 U Hyaline Cast (Auto) 0 /lpf (0-5) 11/02/22 01:30 U Epithel Cells (Auto) 0-5 /lpf (0-5) 11/02/22 01:30 Urine Bacteria (Auto) Negative (Negative) 11/02/22 01:30 Electrocardiogram Date: 11/01/22 Sinus tachycardia, rate 104 bpm Low voltage QRS Cannot rule out Anterior infarct , age undetermined Abnormal ECG No previous ECGs available Chest X-Ray Date: 11/01/22 Findings: + NAD
[2022-11-02] MEDS: ENOXAPARIN INJ 30 MG/0.3 ML SYR SQ SCH (09:11)
[2022-11-02] MEDS ORDERED: ACETAMINOPHEN 1000 MG/100 ML IV IV ONE (09:33)
[2022-11-02] MEDS ORDERED: LIDOCAINE 2% 2 ML VIAL/AMP(20MG/ML) INFIL ONE (09:43)
[2022-11-02] MEDS ORDERED: PROPOFOL IV EMULSION 10 MG/ML 20 ML VIAL IV ONE (09:43)
[2022-11-02] MEDS ORDERED: DEXAMETHASONE SOD INJ 4 MG/ML VIAL ONE (09:43)
[2022-11-02] MEDS ORDERED: ONDANSETRON INJ 2 MG/ML 2 ML VIAL ONE ×2 (09:43→11:21)
[2022-11-02] MEDS ORDERED: ROCURONIUM BROMIDE 10 MG/ML 5 ML VIAL IV ONE (09:43)
[2022-11-02] MEDS ORDERED: fentaNYL citrate 100 MCG/2 ML VIAL ONE ×2 (09:44→11:28)
[2022-11-02] MEDS ORDERED: ePHEDrine sulfate 50 MG/ML AMP IV PRN (09:44)
[2022-11-02] MEDS ORDERED: SUCCINYLCHOLINE CHLORIDE 20 MG/ML 10 ML VIAL IV ONE (09:44)
[2022-11-02] MEDS ORDERED: ATROPINE SULFATE 0.1 MG/ML 10ML SYR IV PRN (09:44)
[2022-11-02] MEDS ORDERED: ONDANSETRON INJ 2 MG/ML 2 ML VIAL IV PRN ×2 (09:44→12:37)
[2022-11-02] MEDS ORDERED: fentaNYL citrate 100 MCG/2 ML VIAL IV PRN (09:44)
[2022-11-02] MEDS ORDERED: HYDROmorphone INJ 1 MG/ML SYRINGE IV PRN (09:45)
[2022-11-02] MEDS ORDERED: ALBUMIN HUMAN 5% 12.5 GM/250 ML VIAL IV ONE (09:52)
[2022-11-02] MEDS ORDERED: BUPIVACAINE 0.5 % 5 MG/1 ML MPF 30ML VIAL ONE (09:56)
[2022-11-02] MEDS ORDERED: ceFAZolin 330 MG/ML 1 GM VIAL ONE (10:57)
[2022-11-02] MEDS ORDERED: ceFAZolin 1000MG 1,000 MG/7.5 ML SYR IV ONE (11:08)
[2022-11-02] MEDS ORDERED: ePHEDrine sulfate 50 MG/ML SYR ONE (11:17)
[2022-11-02] MEDS ORDERED: SUGAMMADEX SODIUM 200 MG/2 ML VIAL IV ONE (11:20)
--- NOTE | 2022-11-02 11:28 | Electrocardiogram Report ---
Test Reason : Blood Pressure : / mmHG Vent. Rate : 104 BPM Atrial Rate : 115 BPM P-R Int : 128 ms QRS Dur : 064 ms QT Int : 322 ms P-R-T Axes : 000 030 076 degrees QTc Int : 423 ms Sinus rhythm with frequent and consecutive PACs Low voltage QRS Abnormal ECG No previous ECGs available Confirmed by Ck Bruno ([id number]) on 11/02/2022 11:27:50 AM Referred By: REFERRED SELF Confirmed By:Mateo Bruno
--- NOTE | 2022-11-02 11:33 | Post Operative Brief Note ---
PG Immediate Post Op with CF Date of Surgery November 02, 2022 Pre & Post Diagnosis Operation Date: 11/02/22 10:10 Pre-Op Diagnosis: Abdominal hernia Post-Op Diagnosis: Right indirect inguinal hernia, large indirect defect I identified the patient and participated in the time-out.: Yes Procedure Operation Date: 11/02/22 10:10 Actual Procedures p Laparoscopy, open right inguinal hernia repair with mesh(Left) - Minh Pickard MD, FACS Surgeon Minh Pickard MD, FACS Dock Worker Nurses Estimated Blood Loss 10 Findings Consistent with Post-Op Diagnosis Patient a very large indirect hernia, presenting to the emergency room with what appeared to be a small bowel obstruction from a loop of bowel within the hernia, reduced in the emergency room
[2022-11-02] MEDS ORDERED: HYDROCODONE/ACETAMOPHEN 5/325MG TAB PO PRN (11:34)
[2022-11-02] MEDS ORDERED: ACETAMINOPHEN 1,000 MG/100 ML VIAL IV ONE (11:34)
[2022-11-02] MEDS ORDERED: PIPERACILLIN/TAZOBACTAM 3.375 GM in DEXTROSE 5% 100 ML IV SCH (12:00)
--- NOTE | 2022-11-02 12:12 | Operative Report (OR) ---
DATE OF OPERATION: 11/02/2022. NAME OF OPERATION: Laparoscopy with open right inguinal hernia repair. PREOPERATIVE DIAGNOSIS: Abdominal wall hernia. POSTOPERATIVE DIAGNOSIS: Right inguinal hernia, large, indirect. STAFF SURGEON: Minh Pickard MD. LYRIC WRITER: Nurses. ANESTHESIA: General. DESCRIPTION OF PROCEDURE: The patient was brought in the operating room and placed on the operating table in supine position. Her abdomen was prepped and draped in the usual fashion. Pneumatic stocki ngs were placed. 0.5% plain Marcaine was used to anesthetize all incisions. An incision was made ju st above the umbilicus, carrying dissection down to the fascia, placing a Veress needle producing pne umoperitoneum. An 11 mm port was placed in this level and then under visualization, I was able to se e the patient had a right lower abdominal hernia. There was some bile in the way and was difficult t o see this without retraction. Therefore, I put a 5 mm port in the left side, was able to remove the bowel, and saw that the patient had a large indirect right inguinal hernia. I felt this would be be st served repaired open with mesh. At this point, all ports were removed. The tissue in the right l ower quadrant anesthetized using 0.5% plain Marcaine. Incision made carrying dissection down. I was not totally sure it was a femoral hernia, but on inspection and incising the external oblique fibers along their length to the external ring, I found that she had a large right inguinal hernia, which w as indirect. This tissue was mobilized. The round ligament was ligated using 2-0 silk suture and th en the tissue was reduced. The internal ring reinforced using a mesh plug secured to surrounding tis lucio using 2-0 Ethibond suture. A large mesh patch was placed into the floor of the canal, secured to surrounding tissue using 2-0 Ethibond suture. Then, the external oblique fibers closed over the mes h after appropriate antibiotic irrigation. These fibers were closed using 2-0 Ethibond suture. Site was anesthetized and the subcutaneous tissue reapproximated using 2-0 plain suture, then the skin re approximated using 4-0 nylon suture and Steri-Strips. The laparoscopic incisions closed using subcut icular 4-0 Monocryl and Dermabond. The patient was transferred to recovery room in stable condition. Job ID: [id number]
[2022-11-02] MEDS ORDERED: SODIUM CHLORIDE 0.9% 1000ML 1,000 ML IV SCH ×2 (12:37→15:00)
[2022-11-02] MEDS ORDERED: MoRPHine SULFATE 2 MG/ML CARP IV PRN (12:37)
--- NOTE | 2022-11-02 12:51 | Anesthesiology Progress Note ---
Date of Service November 02, 2022 Anesthesia Post Procedure Vital Signs Vital Signs: Temp Pulse Pulse Resp BP BP Pulse Ox 11/02/22 12:15 74 24 152/77 H 97 11/02/22 12:05 36.0 C L 84 15 141/78 H 93 11/02/22 11:55 81 13 150/68 H 93 11/02/22 11:45 36.1 C L 73 20 149/79 H 95 11/02/22 09:43 36.8 C 78 20 182/82 H 97 11/02/22 09:13 95 H 18 155/95 H 98 11/02/22 06:55 78 11/02/22 06:00 95 H 18 181/87 H 94 11/02/22 05:30 88 25 H 161/82 H 99 11/02/22 05:00 82 23 175/94 H 95 11/02/22 04:30 84 19 176/73 H 92 11/02/22 04:00 89 22 161/76 H 94 11/02/22 03:30 79 16 148/80 H 95 11/02/22 03:10 79 20 178/104 H 95 11/02/22 03:00 85 19 161/89 H 95 11/02/22 03:25 82 11/02/22 01:32 92 H 20 175/92 H 97 11/02/22 00:36 96 H 20 172/86 H 97 11/01/22 23:15 75 11/01/22 23:19 84 20 172/89 H 96 11/01/22 22:52 87 20 186/121 H 96 11/01/22 22:27 37.7 C H 99 H 16 191/96 H 98 O2 Del Method 11/02/22 12:15 Room Air 11/02/22 12:05 Room Air 11/02/22 11:55 Room Air 11/02/22 11:45 Room Air 11/02/22 09:43 Room Air 11/02/22 09:13 Room Air 11/02/22 06:55 11/02/22 06:00 Room Air 11/02/22 05:30 Room Air 11/02/22 05:00 Room Air 11/02/22 04:30 Room Air 11/02/22 04:00 Room Air 11/02/22 03:30 Room Air 11/02/22 03:10 Room Air 11/02/22 03:00 Room Air 11/02/22 03:25 11/02/22 01:32 Room Air 11/02/22 00:36 Room Air 11/01/22 23:15 11/01/22 23:19 Room Air 11/01/22 22:52 Room Air 11/01/22 22:27 Room Air Pain Intensity Right Lower Abdomen: Pain Intensity: 7 Transfer of Care Handoff Completed per policy Notes Mental Status: alert / awake / arousable and participated in evaluation Patient Amnestic to Procedure: Yes Nausea / Vomiting: adequately controlled Pain: adequately controlled Airway Patency, RR, SpO2: stable & adequate BP & HR: stable & adequate Hydration State: stable & adequate Anesthetic Complications: no major complications apparent and Pt Satisfied with anesthetic care
[2022-11-02] MEDS: ceFAZolin 1000MG 1,000 MG/7.5 ML SYR IV SCH ×2 (14:13→20:57)
--- NOTE | 2022-11-02 15:49 | Hospitalist Progress Note ---
Date of Service November 02, 2022 Assessment & Plan (1) Abdominal pain, acute, right lower quadrant: Plan: Right indirect inguinal hernia, large indirect defect Small bowel obstruction secondary to above --CT ABD:There is a right lower quadrant/inguinal hernia containing a short segment of distal ileum. This results in the transition point of the small bowel obstruction. --Blood Cultures pending -- Continue gentle IV fluids Advance diet as tolerated Appreciate surgery input Pain control Abnormal urinalysis Denies any UTI symptoms No indication for antibiotics currently Monitor Hypertensive urgency Likely situational secondary to pain Lisinopril increased to 5 mg daily IV hydralazine as needed Abnormal thyroid function test Elevated TSH, normal free T4 TSH elevated likely: Acute phase reactant Will need repeat thyroid function tests Abnormal EKG PACs on EKG Asymptomatic Monitor Hyperlipidemia on statin GERD On PPI Hyperglycemia HbA1c 5.3 DVT Px Lovenox SQ CODE STATUS Full code Admission and Anticipated Discharge Date Admission Date: November 02, 2022 Subjective Patient is seen and examined at bedside States having abdominal discomfort but no significant pain postsurgically Denies any nausea, vomiting, chest pain, dyspnea Family at bedside No other complaints Tolerating diet Review of Systems Review of Systems: All systems reviewed & are unremarkable except as noted in Subjective Physical Exam Physical Exam: Physical Exam: Vitals signs as noted above General Appearance:Moderately built and nourished, no apparent distress Head: normocephalic, Atraumatic Eyes: normal inspection, EOMI Neck: supple, Trachea midline Respiratory/Chest: Normal breath sounds, CTA, No accessory muscle use Cardiovascular: S1, S2, No murmur Abdomen/GI:Soft, mild tender, + Surgical wound in dressing, Bowel sounds present Extremities/Musculoskeletal:normal inspection, no edema Neurologic/Psych:AAOX3, grossly no focal neurological deficits Skin: normal color, warm Results & Data Results & Data ([facility]) Vital Signs (Past 12 Hours) Vital Signs Temp Pulse Pulse Pulse Resp BP BP 11/02/22 15:19 36.6 C 70 16 150/80 H 11/02/22 13:42 36.6 C 80 16 176/90 H 11/02/22 13:05 36.2 C L 69 18 163/84 H 11/02/22 12:40 36.6 C 70 18 162/76 H 11/02/22 12:15 74 24 152/77 H 11/02/22 12:05 36.0 C L 84 15 141/78 H 11/02/22 11:55 81 13 150/68 H 11/02/22 11:45 36.1 C L 73 20 149/79 H 11/02/22 09:43 36.8 C 78 20 182/82 H 11/02/22 09:13 95 H 18 155/95 H 11/02/22 06:55 78 11/02/22 06:00 95 H 18 181/87 H 11/02/22 05:30 88 25 H 161/82 H 11/02/22 05:00 82 23 175/94 H 11/02/22 04:30 84 19 176/73 H 11/02/22 04:00 89 22 161/76 H Pulse Ox O2 Del Method 11/02/22 15:19 94 Room Air 11/02/22 13:42 96 Room Air 11/02/22 13:05 96 Room Air 11/02/22 12:40 95 Room Air 11/02/22 12:15 97 Room Air 11/02/22 12:05 93 Room Air 11/02/22 11:55 93 Room Air 11/02/22 11:45 95 Room Air 11/02/22 09:43 97 Room Air 11/02/22 09:13 98 Room Air 11/02/22 06:55 11/02/22 06:00 94 Room Air 11/02/22 05:30 99 Room Air 11/02/22 05:00 95 Room Air 11/02/22 04:30 92 Room Air 11/02/22 04:00 94 Room Air Laboratory Results Short CBC 11/01/22 11/02/22 Range/Units 22:53 04:29 WBC 7.25 9.96 (4.8-10.8) K/ul Hgb 13.3 12.7 (12.0-16.0) g/dl Hct 38.2 36.0 L (37.0-47.0) % Plt Count 209 206 (130-400) K/uL BMP 11/01/22 11/02/22 22:53 04:29 Sodium 136 136 Potassium 3.8 4.3 Chloride 101 104 Carbon Dioxide 31 26 BUN 14 15 Creatinine 0.85 0.82 Glucose 119 H 92 Calcium 10.3 H 9.8 Liver Function 11/01/22 Range/Units 22:53 Total Bilirubin 0.4 (0.2-1.0) mg/dl AST 21 (13-39) U/L ALT 16 (7-52) U/L Alkaline Phosphatase 87 (34-104) U/L Albumin 4.6 (3.4-5.0) gm/dl Urine 11/02/22 Range/Units 01:30 Urine Color Yellow Urine Appearance Clear (Clear) Urine pH 7.0 (4.5-7.5) Ur Specific [place] 1.021 (1.000-1.030) Urine Protein Negative (Negative) Urine Glucose (UA) Negative (Negative)
[2022-11-02] MEDS ORDERED: SENNOSIDES 8.8 MG/5 ML UDC PO SCH (21:00)
[2022-11-03] MEDS: ceFAZolin 1000MG 1,000 MG/7.5 ML SYR IV SCH (05:49)
[2022-11-03 07:30] LABS: Hematocrit (blood only) 32.4 % (37.0-47.0); Hemoglobin 11.4 g/dl (12.0-16.0); Mean Corpuscular Hemoglobin 33.5 pg (25.0-34.0); Mean Corpuscular Hgb Conc 35.2 g/dL (32.0-36.0); Mean Corpuscular Volume 95.3 fL (80.0-100.0); Mean Platelet Volume 10.6 fL (9.4-12.4); Platelet Count 202 K/uL (130-400); RDW Coefficient of Variation 12.7 % (11.5-14.5); RDW Standard Deviation 44.1 fL (36.4-46.3); White Blood Count 13.55 K/ul (4.8-10.8)
[2022-11-03 07:38] LABS: BUN Creatinine Ratio 15.7 (10-20); Calcium 9.8 mg/dl (8.5-10.1); Creatinine Clr Calc Pharmacy 37.7 ml/min; Est GFR (African American) 67.1 ml/min; Est GFR (Non-African American) 57.9 ml/min; Magnesium 1.7 mg/dl (1.7-2.4); Potassium 4.8 mmol/L (3.5-5.1)
--- NOTE | 2022-11-03 08:26 | Surgery Progress Note ---
Date of Service November 03, 2022 Assessment & Plan (1) H/O right inguinal hernia repair: Plan: Patient is doing very well and taking no pain medication She is passing gas Her wound is stable I feel she could be discharged home later this morning I will put in the prescription for some pain medication and antibiotics Discharge information will be in the chart Follow-up later in the week for some suture removal I have discussed this with her daughter Nu Admission and Anticipated Discharge Date Admission Date: November 02, 2022 Results & Data ([facility]) Vital Signs (Past 12 Hours) Vital Signs Temp Pulse Pulse Resp BP Pulse Ox O2 Del Method 11/03/22 07:50 36.6 C 65 16 159/77 H 96 Room Air 11/03/22 02:01 36.6 C 71 15 127/71 94 Room Air PG Care Time/CCT Total # of Minutes Spent Total Time Spent with Patient: Total time spent is greater than 50% in coordination of care (as documented) at patient's floor/unit and/or counseling patient: Coding Level of Care Code 40749 Post Operative Follow-Up Diagnoses H/O right inguinal hernia repair Z98.890; Z87.19
[2022-11-03] MEDS: PANTOprazole 40 MG TAB PO SCH (08:47)
[2022-11-03] MEDS: SIMVASTATIN 20 MG TAB PO SCH (08:47)
[2022-11-03] MEDS: ENOXAPARIN INJ 30 MG/0.3 ML SYR SQ SCH (08:48)
[2022-11-03] MEDS ORDERED: CHOLECALCIFEROL 1,000 UNITS 25 MCG TAB PO SCH (09:00)
[2022-11-03] MEDS ORDERED: DOCUSATE SODIUM/SENNA 50/8.6MG TAB PO SCH (09:00)
[2022-11-03] MEDS ORDERED: lisinopril 5 MG TAB PO SCH (09:00)
[2022-11-03] MEDS ORDERED: MAGNESIUM HYDROXIDE SUSP 30 ML UDC PO SCH (09:00)
--- NOTE | 2022-11-03 11:37 | Hospitalist Progress Note ---
Date of Service November 03, 2022 Assessment & Plan (1) Abdominal pain, acute, right lower quadrant: Plan: Right indirect inguinal hernia, large indirect defect Small bowel obstruction secondary to above --CT ABD:There is a right lower quadrant/inguinal hernia containing a short segment of distal ileum. This results in the transition point of the small bowel obstruction. --Blood Cultures Negative to date -- Received IV fluids Appreciate surgery input Pain control Tolerating diet Continue Keflex as per surgery Needs follow-up with surgery upon discharge Abnormal urinalysis Denies any UTI symptoms Urine culture pending On Keflex empirically as above Hypertensive urgency Likely situational secondary to pain Lisinopril increased to 5 mg daily IV hydralazine as needed Abnormal thyroid function test Elevated TSH, normal free T4 TSH elevated likely: Acute phase reactant needs repeat thyroid function tests as outpatient Abnormal EKG PACs on EKG Asymptomatic Monitor Advised to follow-up with PCP/cardiology as outpatient Hyperlipidemia on statin GERD On PPI Hyperglycemia HbA1c 5.3 DVT Px Lovenox SQ CODE STATUS Full code Disposition Home Admission and Anticipated Discharge Date Admission Date: November 02, 2022 Subjective Patient is seen and examined at bedside Had some abdominal discomfort at surgical site but otherwise no significant pain Tolerating diet + Flatus Denies any nausea, vomiting, chest pain, dyspnea, dizziness Plan to discharge home today Review of Systems Review of Systems: All systems reviewed & are unremarkable except as noted in Subjective Physical Exam Physical Exam: Physical Exam: Vitals signs as noted above General Appearance:Moderately built and nourished, no apparent distress Head: normocephalic, Atraumatic Eyes: normal inspection, EOMI Neck: supple, Trachea midline Respiratory/Chest: Normal breath sounds, CTA, No accessory muscle use Cardiovascular: S1, S2, No murmur Abdomen/GI:Soft, non tender, + Surgical wound in dressing, Bowel sounds present Extremities/Musculoskeletal:normal inspection, no edema Neurologic/Psych:AAOX3, grossly no focal neurological deficits Skin: normal color, warm Results & Data Results & Data ([facility]) Vital Signs (Past 12 Hours) Vital Signs Temp Pulse Pulse Resp BP Pulse Ox O2 Del Method 11/03/22 10:15 36.8 C 70 18 144/76 H 98 11/03/22 07:50 36.6 C 65 16 159/77 H 96 Room Air 11/03/22 02:01 36.6 C 71 15 127/71 94 Room Air Laboratory Results Short CBC 11/03/22 Range/Units 06:51 WBC 13.55 H (4.8-10.8) K/ul Hgb 11.4 L (12.0-16.0) g/dl Hct 32.4 L (37.0-47.0) % Plt Count 202 (130-400) K/uL BMP 11/03/22 06:51 Sodium 138 Potassium 4.8 Chloride 105 Carbon Dioxide 28 BUN 14 Creatinine 0.89 Glucose 112 H Calcium 9.8
--- NOTE | 2022-11-03 11:50 | Discharge Summary ---
Date of Service November 03, 2022 Admission HPI Per Admitting Provider History obtained from patient, family, and records. Medical history significant for hypertension, hyperlipidemia, GERD, gout, macular degeneration. Patient noted achy right lower quadrant pain associated with bloating after dinner last night. No fever, no chills, no chest pain, no SOB. Similar to diverticulitis attack from a few years ago as per patient. Patient brought to the ER for evaluation. 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 Admission Exam Per Admitting Provider Physical Exam Physical Exam: GENERAL: Comfortable, pleasant, looks younger than stated age, no respiratory distress SKIN: Normal color, warm HEENT: [place] palpebral conjunctivae, no ptosis, moist buccal mucosa NECK : Supple, no tenderness CHEST : CTA, no tenderness HEART : RRR, no obvious murmurs ABDOMEN: Some distention, nontender EXTREMITIES : No LE swelling/tenderness, no other conspicuous deformities noted NEUROLOGIC : Coherent, no facial asymmetry, no other gross focality Principal Diagnosis Right inguinal hernia repair Hypertension Abnormal thyroid function Premature atrial contractions Discharge Data Allergies Allergy/AdvReac Type Severity Reaction Status Date / Time adhesive tape Allergy Rash Verified 11/01/22 23:15 cat dander Allergy Unknown Verified 11/01/22 23:15 colchicine Allergy abdominal Verified 11/01/22 23:15 pain,nausea,vomiting nickel Allergy Redness of Verified 11/01/22 23:15 Skin Consultations 11/02/22 01:48 ED Decision to Admit Stat 11/02/22 04:23 Consult General Surgery Routine Procedures Performed Operation Date: 11/02/22 10:10 Actual Procedures s Laparoscopy(Right) - Minh Pickard MD, FACS p open right inguinal hernia repair with mesh(Right) - Minh iPckard MD, FACS Ordered Studies 11/01/22 22:38 CT abd pelvis IV con only Stat Laboratory Results WBC 13.55 K/ul (4.8-10.8) H 11/03/22 06:51 RBC 3.40 M/uL (4.20-5.40) L 11/03/22 06:51 Hgb 11.4 g/dl (12.0-16.0) L 11/03/22 06:51 Hct 32.4 % (37.0-47.0) L 11/03/22 06:51 MCV 95.3 fL (80.0-100.0) 11/03/22 06:51 MCH 33.5 pg (25.0-34.0) 11/03/22 06:51 MCHC 35.2 g/dL (32.0-36.0) 11/03/22 06:51 RDW Std Deviation 44.1 fL (36.4-46.3) 11/03/22 06:51 RDW Coeff of [place] 12.7 % (11.5-14.5) 11/03/22 06:51 Plt Count 202 K/uL (130-400) 11/03/22 06:51 MPV 10.6 fL (9.4-12.4) 11/03/22 06:51 Immature Gran % (Auto) 0.2 % 11/02/22 04:29 Neut % (Auto) 75.1 % 11/02/22 04:29 Lymph % (Auto) 13.6 % 11/02/22 04:29 [place] % (Auto) 7.9 % 11/02/22 04:29 Eos % (Auto) 2.5 % 11/02/22 04:29 Baso % (Auto) 0.7 % 11/02/22 04:29 Neut # (Auto) 7.48 K/uL (1.40-6.50) H 11/02/22 04:29 Lymph # (Auto) 1.35 K/uL (1.2-3.4) 11/02/22 04:29 [place] # (Auto) 0.79 K/uL (0.11-0.59) H 11/02/22 04:29 Eos # (Auto) 0.25 K/uL (0-0.50) 11/02/22 04:29 Baso # (Auto) 0.07 K/uL (0-0.2) 11/02/22 04:29 Immature Gran # (Auto) 0.02 K/uL (0.01-0.20) 11/02/22 04:29 PT 10.1 Seconds (9.0-12.0) 11/01/22 22:53 INR 0.9 (0.9-1.1) 11/01/22 22:53 Sodium 138 mmol/L (136-145) 11/03/22 06:51 Potassium 4.8 mmol/L (3.5-5.1) 11/03/22 06:51 Chloride 105 mmol/L (98-107) 11/03/22 06:51 Carbon Dioxide 28 mmol/L (21-32) 11/03/22 06:51 Anion Gap 5 (3-11) 11/03/22 06:51 BUN 14 mg/dl (6-23) 11/03/22 06:51 Creatinine 0.89 mg/dl (0.6-1.2) 11/03/22 06:51 Est Cr Clr Drug Dosing 37.7 ml/min 11/03/22 06:51 Est GFR ( Amer) 67.1 ml/min 11/03/22 06:51 Est GFR (Non-Af Amer) 57.9 ml/min 11/03/22 06:51 BUN/Creatinine Ratio 15.7 (10-20) 11/03/22 06:51 Glucose 112 mg/dl (70-99(Fasting)) H 11/03/22 06:51 Estimat Average Glucose 105 mg/dl 11/02/22 04:29 Hemoglobin A1c 5.3 % (4.5-5.6) 11/02/22 04:29 Lactate 0.9 mmol/L (0.4-2.0) 11/02/22 00:15 Calcium 9.8 mg/dl (8.5-10.1) 11/03/22 06:51 Magnesium 1.7 mg/dl (1.7-2.4) 11/03/22 06:51 Total Bilirubin 0.4 mg/dl (0.2-1.0) 11/01/22 22:53 AST 21 U/L (13-39) 11/01/22 22:53 ALT 16 U/L (7-52) 11/01/22 22:53 Alkaline Phosphatase 87 U/L (34-104) 11/01/22 22:53 Troponin I High Sens 6.0 pg/ml (0-14) 11/01/22 22:53 Total Protein 7.7 gm/dl (6.0-8.3) 11/01/22 22:53 Albumin 4.6 gm/dl (3.4-5.0) 11/01/22 22:53 Globulin 3.1 gm/dl (2.5-4.0) 11/01/22 22:53 Albumin/Globulin Ratio 1.5 (0.9-2) 11/01/22 22:53 Lipase 32 U/L (11-82) 11/01/22 22:53 TSH 15.554 uIu/ml (0.300-4.500) H 11/01/22 22:53 Free T4 0.66 ng/dl (0.61-1.60) 11/01/22 22:53 Urine Color Yellow 11/02/22 01:30 Urine Appearance Clear (Clear) 11/02/22 01:30 Urine pH 7.0 (4.5-7.5) 11/02/22 01:30 Ur Specific [place] 1.021 (1.000-1.030) 11/02/22 01:30 Urine Protein Negative (Negative) 11/02/22 01:30 Urine Glucose (UA) Negative (Negative) 11/02/22 01:30 Urine Ketones Negative (Negative) 11/02/22 01:30 Urine Blood Negative (Negative) 11/02/22 01:30 Urine Nitrite Negative (Negative) 11/02/22 01:30 Urine Bilirubin Negative (Negative) 11/02/22 01:30 Urine Urobilinogen Negative (Negative) 11/02/22 01:30 Ur Leukocyte Esterase 1+ (Negative) H 11/02/22 01:30 Urine WBC (Auto) 1-5 /hpf (0-5) 11/02/22 01:30 Urine RBC (Auto) 0-4 /hpf (0-4) 11/02/22 01:30 U Hyaline Cast (Auto) 0 /lpf (0-5) 11/02/22 01:30 U Epithel Cells (Auto) 0-5 /lpf (0-5) 11/02/22 01:30 Urine Bacteria (Auto) Negative (Negative) 11/02/22 01:30 SARS-CoV-2 (PCR) NEGATIVE (Negative) 11/02/22 01:40 Influenza Type A (PCR) Negative (Neg) 11/02/22 01:40 Influenza Type B (PCR) Negative (Neg) 11/02/22 01:40 RSV (RT-PCR) Negative (Neg) 11/02/22 01:40 Impressions Abdomen/Pelvis CT 11/01/22 22:[address] WITH IV CONTRAST CT DOSE: 403.67 mGy.cm HISTORY: lower abd pain TECHNIQUE: Multiaxial CT images of the abdomen and pelvis were performed following the use of intravenous contrast. A dose lowering technique was utilized adhering to the principles of ALARA. COMPARISON STUDY: Abdomen and pelvis CT 10/20/2019. FINDINGS: Mild dependent changes seen at the lung bases. No pneumoperitoneum. No pneumatosis. No acute fractures. There is a small hiatus hernia. The gallbladder is contracted. No hepatic or splenic masses. Normal pancreas and left adrenal gland. There is a 2.4 cm left renal cyst. The right kidney enhances normally. No hydronephrosis. Normal caliber abdominal aorta. The main portal vein is patent. No retroperitoneal or pelvic lymphadenopathy. The bladder, uterus, bilateral adnexa are within normal limits. Colonic diverticulosis. No evidence for acute diverticulitis. There is a right lower quadrant/inguinal hernia containing a azra rt segment of the distal ileum. This results in the transition point of the small bowel obstruction. Distended loops of small bowel measure up to 3.1 cm in diameter. IMPRESSION: There is a right lower quadrant/inguinal hernia containing a short segment of distal ileum. This results in the transition point of the small bowel obstruction. ACT 112: Negative or not required by law. Electronically signed by: Chon Salomon M.D. 11/02/2022 8:08 AM Chest X-Ray 11/01/22 22:38 XR chest 1V portable HISTORY: Hypertension. COMPARISON: None. FINDINGS: The lungs are clear. Cardiac silhouette is normal in size. No pleural effusions. No pneumothorax. IMPRESSION: No acute process. ACT 112: Negative or not required by law. Electronically signed by: Chon Salomon M.D. 11/02/2022 8:59 AM Hospital Course (1) Abdominal pain, acute, right lower quadrant: Right indirect inguinal hernia, large indirect defect Small bowel obstruction secondary to above --CT ABD:There is a right lower quadrant/inguinal hernia containing a short segment of distal ileum. This results in the transition point of the small bowel obstruction. --Blood Cultures Negative to date -- Received IV fluids Appreciate surgery input Pain control Tolerating diet Continue Keflex as per surgery Needs follow-up with surgery upon discharge Abnormal urinalysis Denies any UTI symptoms Urine culture pending On Keflex empirically as above Hypertensive urgency Likely situational secondary to pain Lisinopril increased to 5 mg daily IV hydralazine as needed Abnormal thyroid function test Elevated TSH, normal free T4 TSH elevated likely: Acute phase reactant needs repeat thyroid function tests as outpatient Abnormal EKG PACs on EKG Asymptomatic Monitor Advised to follow-up with PCP/cardiology as outpatient Hyperlipidemia on statin GERD On PPI Hyperglycemia HbA1c 5.3 DVT Px Lovenox SQ CODE STATUS Full code Disposition Home Total Time Total Time Spent Total Time Spent (In Minutes): 55 minutes Discharge Plan Discharge Items Patient Disposition: Home - Self-Care Reason For Visit: SBO, HTN URG Discharge Diagnosis: Right inguinal hernia repair Hypertension Abnormal thyroid function Premature atrial contractions Activity: Per Instructions section Activity Comment: light activity for 4 weeks Lifting: No more than 10 pounds Bathing Comment: may shower; no soaking in tubs/pools Exercise/Sports: Wait until after follow-up appointment Exercise Comment: wait 4 weeks Driving/Machine Use: wait at least 1 week; no driving while taking narcotics for pain Non-emergency contact: Primary Care Provider and Surgeon Call non-emergency contact if: you have any medication questions, your symptoms worsen, your pain is not controlled, your pain is concerning for you, you have a fever, your temperature is above 101.5, your wound has increased redness, your wound has increased drainage and your wound pain has increased Follow-up/Referrals: Minh Pickard MD, FACS [Physician] - 11/09/22 11:00 am Jake Jordan MD [Primary Care Provider] - (Date & Time 11/09/2022 2:20 PM Provider Liset Pedro MD Department General Internal Medicine [facility] ) Diet: Regular Addtl Attending Provider Instructions: SPECIAL CARE INSTRUCTIONS: * Cover incisions and change daily for comfort/drainage. Leave Steri-Strips in place * * Avoid constipation- * May Use Senokot S and Milk of Magnesium twice daily as directed on the package * May use ibuprofen for pain as tolerated. * Expect some swelling and bruising. Call your doctor if: * Temperature above 101 degrees * Pain not relieved by pain medicine ordered * There is increased drainage or redness from any incision * You have any unanswered questions or concerns [phone]. FOLLOW UP VISIT: If not already scheduled, please call the office for a follow-up visit. For next or Fridaysome suture removal OFFICE PHONE NUMBER: Dr. Pickard Office [facility] Client Services Administrator Provider Instructions: Follow-up with your primary care physician Dr. Jordan on 11/09/2022 2:20 PM Follow-up with your surgeon Dr. Pickard as scheduled. --Consider following with your chiropractic doctor for reevaluation of premature atrial contractions on EKG which were incidentally noted while you are hospitalized -- Complete antibiotic course as prescribed -Your blood and urine cultures are pending at the time of discharge. Follow-up with your physician for results. -- Start taking lisinopril 5 mg daily to better control your blood pressure. Monitor your blood pressure regularly at home as advised. Further medication adjustment as per your primary care physician. -- Obtain thyroid function test as outpatient as you are incidentally noted to have abnormal thyroid function test while hospitalized. Seek immediate medical attention if your symptoms reoccur or worsen Please take all medications as instructed on discharge list below. Please call if you have any questions or problems. You can reach a [facility] hospitalist on duty at [facility] 24 hours a day by calling [phone] Pending Studies at Discharge: No Stand-Alone Forms: My [facility], Smoking Cessation Medications and DC Order Prescriptions: New cephalexin 500 mg capsule 500 mg PO TID Qty: 15 0RF hydrocodone-acetaminophen 5-325 mg tablet 1 tab PO Q4H PRN (Reason: pain) Qty: 20 0RF Rx Instructions: For severe pain you may take 2 tablets but not more than 6 tablets in a single day lisinopril [Zestril] 5 mg Tablet 5 mg PO DAILY Qty: 30 0RF Continued simvastatin 20 mg tablet 20 mg PO DAILY omeprazole 20 mg capsule,delayed release(DR/EC) 20 mg PO PRN (Reason: Acid Reflux) cholecalciferol (vitamin D3) [Vitamin D3] 25 mcg (1,000 unit) Tablet 25 mcg PO DAILY Discontinued lisinopril 2.5 mg tablet 2.5 mg PO DAILY Discharge Orders: Discharge Order (Routine); Ordered 11/03/22 Ordered By: Minh Pickard Admission Data Admit Date/Time: 11/02/22 01:51 Attending Provider: Donald Robbins Admit Provider: Navjot Andersen Primary Care Provider: Jake Jordan Other Providers: Navjot Andersen ; Minh Pickard ; Raymon Bella ; Lj Mccarty ; Raudel Franklin ; Skinny Cheung ; Cristy Dumas ; Sanjiv Gomez ; Hernandez Mistry ; Jazlyn Henriquez Other Interventions: Discharge Summary Assessment (RN) Last Done: 11/03/22 10:15
== END 2022-11-03 13:11 | disposition home or self-care (01) | DRG 351 ==
LOC: ED 22:26 → SUATTDRO 11-02 01:51 → EDINP 11-02 01:51 → 3W 11-02 12:34